=== PATIENT | male | born 1955 | race Caucasian/White ===

== ENCOUNTER → 2017-10-13 10:12 | Outpatient (CLI) | payer OTHER, SELFPAY ==
[2017-10-13 11:52] LABS: Alanine Aminotransferase 38 U/L (12-78); Albumin Level 3.8 gm/dL (3.4-5.0); Alkaline Phosphatase 128 U/L (46-116); Aspartate Amino Transferase 25 U/L (15-37); Bilirubin,Direct 0.1 mg/dL (0.0-0.2); Bilirubin,Total 0.5 mg/dL (0.2-1.0); Chol/HDL Ratio 3.5 (1-3.5); Cholesterol 163 mg/dL (140-200); HDL Cholesterol 46 mg/dL (27-67); LDL Cholesterol 87 mg/dL (0-130); Total Protein,Serum 6.7 gm/dL (6.4-8.2); Triglycerides 150 mg/dL (30-200); VLDL Cholesterol 30 mg/dL (0-40)
== END ==
PROVIDERS: PCP Internal Medicine; Visit Provider Internal Medicine Cardiovascular Disease
DX: E78.5 Hyperlipidemia, unspecified (principal)
CPT/HCPCS: 36415; 80061; 80076

== ENCOUNTER → 2018-01-28 10:01 | Outpatient (CLI) | payer OTHER, SELFPAY ==
--- NOTE | 2018-01-28 10:08 | XR_ITS ---
XR knee RT 4V HISTORY: ITS.REASON: Right knee pain ORDERING PHYSICIAN: Vishal Mayo MD PATIENT AGE: 62 years COMPARISON: None FINDINGS: There are moderate to severe osteoarthritic changes of the lateral compartment a loose intra-articular body measuring 9 mm is noted along the medial and anterior aspect of the lateral compartment. Osteophytes are present along the lateral compartment. Mild osteoarthritic changes are present at the medial compartment and patellofemoral joint. There are postsurgical changes with a large staple along the medial femoral condyle, 2 trey along the proximal aspect of the tibia medially and 2 trey along the proximal aspect of the tibia laterally. No acute fracture or dislocation. No lytic or blastic change. IMPRESSION: Moderate to severe osteoarthritis with loose body along the lateral compartment medially with postsurgical changes
== END ==
PROVIDERS: PCP Internal Medicine; Visit Provider Orthopaedic Surgery
DX: M25.561 Pain in right knee (principal)
CPT/HCPCS: 73564

== ENCOUNTER → 2018-11-09 10:57 | Outpatient (CLI) | payer OTHER, SELFPAY ==
[2018-11-09 12:20] LABS: Alanine Aminotransferase 37 U/L (12-78); Albumin Level 3.6 gm/dL (3.4-5.0); Albumin/Globulin Ratio 1.2 (1.1-1.8); Alkaline Phosphatase 115 U/L (46-116); Anion Gap 11.3 mEq/L (5-15); Aspartate Amino Transferase 20 U/L (15-37); Bilirubin,Total 0.5 mg/dL (0.2-1.0); Blood Urea Nitrogen 18 mg/dL (7-18); Calcium 8.9 mg/dL (8.5-10.1); Carbon Dioxide 29 mmol/L (21.0-32.0); Chloride 106 mmol/L (98-107); Chol/HDL Ratio 4.3 (1-3.5); Cholesterol 173 mg/dL (140-200); Estimated Glomerular Filt Rate 61 ml/min (>60); GFR (African American) 74 ML/MIN (>60); Globulin 2.9 gm/dl (1.3-3.2); Glucose 96 mg/dL (74-106); HDL Cholesterol 40 mg/dL (27-67); LDL Cholesterol 104 mg/dL (0-130); Potassium 5.3 mmoL/L (3.5-5.1); Sodium 141 mmol/L (136-145); Total Protein,Serum 6.5 gm/dL (6.4-8.2); Triglycerides 145 mg/dL (30-200); VLDL Cholesterol 29 mg/dL (0-40)
== END ==
PROVIDERS: Visit Provider Internal Medicine Cardiovascular Disease
DX: E78.5 Hyperlipidemia, unspecified (principal)
CPT/HCPCS: 36415; 80053; 80061

== ENCOUNTER 2020-02-02 11:28 | Emergency (ER) | payer MEDICARE, SELFPAY ==
--- NOTE | 2020-02-02 11:36 | ECG_ITS ---
APPROVED REPORT Exam: Resting ECG HR:59 bpm ECG Measurements Heart Rate 59 AXES OH 192 P 25 QRSd 84 QRS 17 QT 398 T 37 QTc 394 <Conclusion> Sinus bradycardia,Incomplete RBBB Otherwise normal ECG Electronically signed by : Nick Gates, 02/02/2020 17:31:12
[2020-02-02 11:38] VITALS: BP 142/81; PULSE 69; RESP 18; TEMP 36.6; O2SAT 97; BMI 28.1
[2020-02-02 11:50] VITALS: BMI 28.1
--- NOTE | 2020-02-02 11:50 | HMH.EDGENADL ---
ED Disposition Clinical Impression: Lightheadedness, Leg weakness, bilateral Disposition: Home, Self-Care Condition on Discharge: Good Instructions: DI for Muscle Weakness, DI for Dizziness-Nonvertigo Additional Instructions: Amoxicillin as prescribed. Albuterol inhaler as needed. Follow-up with Dr. Gates in the office, call for appointment. Prescriptions: Albuterol Sulfate [Proventil-HFA 90mcg/puff Inh] 1 - 2 puffs IH Q6HP PRN #1 inh PRN Reason: Wheezing Transmission Status: Received by [facility] Amoxicillin [Amoxicillin 500mg Cap] 500 mg PO TID #30 cap Transmission Status: Received by [facility] Referrals: Nick Gates [Primary Care Provider] - - Critical Care Critical Care Time: No Attestation: On 02/02/20, the high probability of a clinically significant, sudden or life threatening deterioration of the following system(s) required my full and direct attention, intervention and personal management. The time I documented below is in addition to time spent performing reported procedures but includes the following listed in this critical care notation. Medical Decision Making - Medical Records Medical records reviewed: Yes: I reviewed the patient's medical records. - Tree Inquiry Pt receiving controlled substance: No Vital Signs: 02/02/20 11:38 02/02/20 13:31 Temperature 97.8 F 97.8 F Temperature Source Oral Oral Pulse Rate 70 Pulse Rate [Right Radial] 69 Respiratory Rate 18 18 Blood Pressure 134/88 Blood Pressure [Right Arm] 142/81 H Blood Pressure Mean [Right Arm] 101 Blood Pressure Source Automatic Cuff Blood Pressure Source [Right Arm] Automatic Cuff Blood Pressure Position Sitting Blood Pressure Position [Right Arm] Sitting 02 Sat by Pulse Oximetry 97 Oxygen Delivery Method Room Air Room Air - Lab Data Lab results reviewed: Yes: I reviewed the patient's lab results. Lab Results 02/02/20 11:45: WBC 4.3 L, RBC 4.70, Hgb 15.0, Hct 43.7, MCV 92.9, MCH 31.9 H, MCHC 34.4, RDW 12.9, Plt Count 217, MPV 7.6, Neut % (Auto) 57.2, Lymph % (Auto) 33.8, [place] % (Auto) 7.0, Eos % (Auto) 1.1, Baso % (Auto) 0.8, Neut # (Auto) 2.5, Lymph # (Auto) 1.5, [place] # (Auto) 0.3, Eos # (Auto) 0.1, Baso # (Auto) 0.0 02/02/20 11:45: Sodium 140, Potassium 4.7, Chloride 103, Carbon Dioxide 29, Anion Gap 12.7, BUN 21 H, Creatinine 1.10, Estimated Creat Clear 95, Estimated GFR 67, Est GFR ( Amer) 81, Glucose 101 H, Calcium 9.3, Troponin I < 0.01 Result diagrams: 02/02/20 11:45 02/02/20 11:45 - Radiology Data #1 Image(s): Chest Image Reviewed: Yes I reviewed the patient's radiology image, Yes I have reviewed radiologist's interpretation Hiatal hernia - ECG Data Tracing #1 EKG interpreted by Bill Shay MD: Rhythm: sinus bradycardia Rate: 59 [place]: normal Ectopy: none Conduction: normal ST Segment Changes: none T Wave Changes: none Q Waves: none No evidence of acute ischemia or injury Medical Decision Narrative: 12:45 PM: Nurse reports that patient now wants to know if he can refuse the coronavirus test. States that he thinks he just needs an inhaler. 12:54 PM: I spoke with patient and . He does not want a coronavirus test. He says Dr. Stinson is told him he needs to keep an inhaler and he is to does not currently have one. His again tells me that the last time he had this he was diagnosed with a sinus condition and was put on an antibiotic and she would like for him to be on the same now. He thinks it was amoxicillin. General Adult HPI - General Stated complaint: dizzy weak Time Seen by Provider: 02/02/20 12:04 - History of Present Illness HPI narrative: The patient says he woke up this morning feeling weak in the legs and lightheaded. He also says I also have sinus drainage, and that is not helping anything . He relates that he had similar symptoms a few years ago and was diagnosed with a bad sinus infection. He
--- NOTE | 2020-02-02 11:51 | XR_ITS ---
PROCEDURE: XR CHEST PORTABLE CLINICAL HISTORY: weakness COMPARISON: No exams were available for comparison FINDINGS: Prior CABG. Normal heart size. Lucency is noted in the retrocardiac region and could be related to a moderate-sized hiatal hernia and could be confirmed with CT. No lobar consolidation or collapse. No acute bony anomalies. No acute bony abnormalities. IMPRESSION: Lucency in the retrocardiac region which may be related to a hiatal hernia otherwise negative Dictated by: Abilio Kelly MD 02/02/2020 12:44 Electronically signed by Abilio Kelly MD in [place] 02/02/2020 12:44
[2020-02-02 11:58] LABS: Basophils % 0.8 % (0.1-2.0); Chloride 103 mmol/L (98-107); Eosinophils # 0.1 K/mm3 (0.0-0.4); Eosinophils % 1.1 % (0.1-12.0); Hematocrit 43.7 % (42.0-52.0); Lymphocytes # 1.5 K/mm3 (0.7-4.5); Lymphocytes % 33.8 % (10-50); Mean Corpuscular HGB Conc 34.4 g/dL (31.8-35.4); Mean Corpuscular Hemoglobin 31.9 pg (27.0-31.2); Mean Corpuscular Volume 92.9 fl (80-94); Mean Platelet Volume 7.6 fl (7.4-10.4); Monocytes # 0.3 K/mm3 (0.1-1.0); Neutrophils # 2.5 K/mm3 (1.8-7.8); Neutrophils % 57.2 % (37.0-80.0); Platelet Count 217 K/mm3 (142-424); Potassium 4.7 mmoL/L (3.5-5.1); Red Cell Distribution Width 12.9 % (11.5-17.5); Sodium 140 mmol/L (136-145); White Blood Count 4.3 K/mm3 (4.8-10.8)
[2020-02-02 12:01] LABS: Anion Gap 12.7 mEq/L (5-15); Blood Urea Nitrogen 21 mg/dl (9-20); Carbon Dioxide 29 mmol/L (22.0-30.0); Creatinine Clearance Estimated 95 mL/min (50-200); Estimated Glomerular Filt Rate 67 ml/min (>60); GFR (African American) 81 ML/MIN (>60)
[2020-02-02 12:02] LABS: Calcium 9.3 mg/dl (8.4-10.2); Glucose 101 mg/dl (74-100)
[2020-02-02 12:14] LABS: Troponin I < 0.01 ng/ml (0.00-0.034)
--- NOTE | 2020-02-02 12:32 | PC.NURSE ---
notified lab of covid swab order
--- NOTE | 2020-02-02 12:37 | XR_ITS ---
PROCEDURE: XR CHEST 2V CLINICAL HISTORY: weakness A COMPARISON: XR CHEST PORTABLE from 02/02/2020 FINDINGS: Prior median sternotomy. There is a moderate-sized hiatal hernia with lucency in the retrocardiac region. The lungs are clear without infiltrates, suspicious nodules, or pleural effusions. The thoracic kyphosis with mild wedging involving T7-T8 and T9 which may be chronic. IMPRESSION: Moderate-sized hiatal hernia. Thoracic kyphosis Dictated by: Abilio Kelly MD 02/02/2020 14:20 Electronically signed by Abilio Kelly MD in [place] 02/02/2020 14:20
--- NOTE | 2020-02-02 12:46 | PC.NURSE ---
Patient requesting to cancel Covid testing stating that he does not have symptoms and would rather just get an inhaler. notified. Ok to cancel Covid testing.
[2020-02-02 13:31] VITALS: BP 134/88; PULSE 70; RESP 18; TEMP 36.6; O2SAT 96
== END 2020-02-02 13:33 | disposition home or self-care (01) ==
PROVIDERS: Emergency Provider Emergency Medicine; PCP Internal Medicine
DX: R42 Dizziness and giddiness (principal); Z95.1 Presence of aortocoronary bypass graft; I25.10 Atherosclerotic heart disease of native coronary artery without angina pectoris; Z95.5 Presence of coronary angioplasty implant and graft; R29.898 Other symptoms and signs involving the musculoskeletal system
CPT/HCPCS: 71045; 71046; 80048; 84484; 85025; 93005; 99283

== ENCOUNTER → 2020-03-03 10:29 | Outpatient (CLI) | payer MEDICARE, SELFPAY ==
--- NOTE | 2020-03-03 10:35 | MR_ITS ---
PROCEDURE: MR HEAD/BRAIN WO/W CON CLINICAL INDICATION: DIZZINESS, NEAR SYNCOPE COMPARISON: No exams were available for comparison TECHNIQUE: Standard unenhanced MRI brain protocol FINDINGS: There are no restricted diffusion abnormalities. The vertebrobasilar vascular flow voids, 7th and 8th nerves, pituitary, orbits, and sinuses are unremarkable. Scattered foci of T2 prolongation within the subcortical, periventricular, and the pontine white matter is present. There are no abnormal areas of enhancement are hemorrhage. IMPRESSION: Pontine and supratentorial microischemia Dictated by: Isaias Damon 03/03/2020 13:00 Electronically signed by Isaias Damon in [place] 03/03/2020 13:00
== END ==
PROVIDERS: PCP Internal Medicine; Visit Provider Internal Medicine
DX: R42 Dizziness and giddiness (principal); R55 Syncope and collapse
CPT/HCPCS: 70553; A9576

== ENCOUNTER → 2020-03-14 10:44 | Outpatient (POV) | payer MEDICARE, SELFPAY | PROVIDERS: Visit Provider Otolaryngology | DX: Z00.00 Encounter for general adult medical examination without abnormal findings (principal) ==

== ENCOUNTER → 2020-03-17 10:43 | Outpatient (CLI) | payer MEDICARE, SELFPAY ==
--- NOTE | 2020-03-17 | CA_ITS ---
APPROVED REPORT Management Internship: KAYLA Laterality: Bilateral Indications: Dizziness Risk Factors Hypertension: Hyperlipidemia Doppler Spectral Velocity Analysis ECA (R) 110.80/20.20 cm/s ECA (L) 115.60/19.30 cm/s dICA (R) 92.50/28.90 cm/s dICA (L) 120.40/47.20 cm/s Samina (R) 100.20/28.90 cm/s Samina (L) 116.50/39.50 cm/s pICA (R) 90.50/25.00 cm/s pICA (L) 94.40/32.70 cm/s dCCA (R) 89.60/23.10 cm/s dCCA (L) 78.00/19.30 cm/s pCCA (R) 94.40/21.20 cm/s pCCA (L) 110.80/26.00 cm/s Vert (R) 67.40/23.10 cm/s Vert (L) 51.00/12.50 cm/s ICA/CCA 1.12 ICA/CCA 1.54 Findings Duplex evaluation demonstrates stenosis of the right proximal internal carotid artery <20% with PSV <140 cm/sec, EDV <100 cm/sec, and IC/CC Ratio <4.0.Duplex evaluation demonstrates stenosis of the left proximal internal carotid artery <20% with PSV <140 cm/sec, EDV <100 cm/sec, and IC/CC Ratio <4.0. Conclusion No increased velocities to suggest hemodynamically significant stenosis in either internal carotid artery. Electronically signed by : Abilio Kelly MD 03/17/2020 17:42:09
== END ==
PROVIDERS: PCP Internal Medicine; Visit Provider Otolaryngology
DX: R42 Dizziness and giddiness (principal)
CPT/HCPCS: 93880

== ENCOUNTER 2020-09-10 08:09 | Day surgery (SDC) | payer MEDICARE, SELFPAY ==
[2020-09-10] VITALS (11 sets, daily range): BP systolic 98–179; BP diastolic 50–110; PULSE 69–93; RESP 16–20; TEMP 36.6–36.7; O2SAT 94–98; BMI 26.7
--- NOTE | 2020-09-10 08:22 | HMH.EDGENADL ---
ED Disposition Clinical Impression: Food impaction of esophagus Qualifiers: Encounter type: initial encounter Qualified Code(s): T18.128A - Food in esophagus causing other injury, initial encounter Disposition: Admitted as Observation Condition on Discharge: Good Referrals: Nick Gates [Primary Care Provider] - - Critical Care Critical Care Time: No Attestation: On 09/10/20, the high probability of a clinically significant, sudden or life threatening deterioration of the following system(s) required my full and direct attention, intervention and personal management. The time I documented below is in addition to time spent performing reported procedures but includes the following listed in this critical care notation. Medical Decision Making - Medical Records Medical records reviewed: Yes: I reviewed the patient's medical records. - Tree Inquiry Pt receiving controlled substance: No Vital Signs: 09/10/20 08:09 Temperature 98.0 F Temperature Source Oral Pulse Rate [Right] 82 Respiratory Rate 16 Blood Pressure [Right Arm] 155/110 H Blood Pressure Mean [Right Arm] 125 Blood Pressure Source [Right Arm] Automatic Cuff Blood Pressure Position [Right Arm] Sitting 02 Sat by Pulse Oximetry 98 Oxygen Delivery Method Room Air - Lab Data Lab Results 09/10/20 08:33: WBC 4.1 L, RBC 4.86, Hgb 15.9, Hct 44.3, MCV 91.1, MCH 32.7 H, MCHC 35.9 H, RDW 13.6, Plt Count 213, MPV 7.4, Neut % (Auto) 56.1, Lymph % (Auto) 33.3, [place] % (Auto) 8.7, Eos % (Auto) 1.1, Baso % (Auto) 0.8, Neut # (Auto) 2.3, Lymph # (Auto) 1.4, [place] # (Auto) 0.4, Eos # (Auto) 0.0, Baso # (Auto) 0.0 09/10/20 08:33: PT 11.4, INR 1.03, APTT 23.6 09/10/20 08:33: Sodium 137, Potassium 4.4, Chloride 101, Carbon Dioxide 29, Anion Gap 11.4, BUN 20, Creatinine 1.20, Estimated Creat Clear 85, Estimated GFR 61, Est GFR ( Amer) 73, Glucose 106 H, Calcium 9.5 Result diagrams: 09/10/20 08:33 09/10/20 08:33 Orders (Tests/Meds): ED MEDICATIONS Discontinued Medications Generic Name Dose Route Start Last Admin Trade Name Raymond PRN Reason Stop Dose Admin Glucagon 1 mg 09/10/20 08:21 09/10/20 08:41 Glucagon 1 Mg/Ml Vial IV 09/10/20 08:22 1 mg ONCE ONE Administration Ondansetron HCl 4 mg 09/10/20 08:21 09/10/20 08:40 Ondansetron 4mg/2ml Vial IV 09/10/20 08:22 4 mg ONCE ONE Administration Medical Decision Narrative: 64-year-old male with esophageal strictures and history of multiple impacted food boluses with an impacted food bolus today. Tolerating secretions but not oral intake. Refractory to glucagon and Zofran. Have spoken to surgery who will perform emergent EGD. Patient remained stable in the ED. General Adult HPI - General Stated complaint: can't swallow Time Seen by Provider: 09/10/20 08:22 - History of Present Illness HPI narrative: Is a 64-year-old male with a history of esophageal stricture status post multiple presenting with an impacted food bolus that he describes to be pulled pork that he ate yesterday at noon. He is unable to swallow liquids now. He is able to tolerate his own secretions. No fever, chills, cough, shortness of breath, difficulty breathing, chest pain. This has happened multiple times in the past and feels exactly the same as prior impacted food boluses. - Related Data Home Medications Medication Instructions Recorded Confirmed aspirin 325 mg tablet 325 mg PO BID 01/28/18 02/02/20 cetirizine 10 mg capsule 10 mg PO ONCE 01/28/18 02/02/20 lansoprazole 30 mg capsule,delayed 30 mg PO QHS 01/28/18 02/02/20 release propranolol 160 mg capsule,24 160 mg PO ONCE 01/28/18 02/02/20 hr,extended release ramipril 5 mg capsule 5 mg PO BID 01/28/18 02/02/20 Alirocumab [Praluent Pen] 75 mg SQ DIRECTED 02/02/20 02/02/20 Previous Rx's Medication Instructions Recorded Albuterol Sulfate [Proventil-HFA 1 - 2 puffs IH Q6HP PRN #1 inh 02/02/20 90mcg/puff Inh] Amoxicillin
[2020-09-10 08:42] LABS: Basophils % 0.8 % (0.1-2.0); Eosinophils % 1.1 % (0.1-12.0); Hematocrit 44.3 % (42.0-52.0); Hemoglobin 15.9 g/dL (14.1-18.0); Lymphocytes # 1.4 K/mm3 (0.7-4.5); Lymphocytes % 33.3 % (10-50); Mean Corpuscular HGB Conc 35.9 g/dL (31.8-35.4); Mean Corpuscular Hemoglobin 32.7 pg (27.0-31.2); Mean Corpuscular Volume 91.1 fl (80-94); Mean Platelet Volume 7.4 fl (7.4-10.4); Monocytes # 0.4 K/mm3 (0.1-1.0); Monocytes % 8.7 % (1.7-9.3); Neutrophils # 2.3 K/mm3 (1.8-7.8); Neutrophils % 56.1 % (37.0-80.0); Platelet Count 213 K/mm3 (142-424); Red Blood Count 4.86 M/mm3 (4.60-6.20); Red Cell Distribution Width 13.6 % (11.5-17.5); White Blood Count 4.1 K/mm3 (4.8-10.8)
--- NOTE | 2020-09-10 08:45 | PC.NURSE ---
pt unable to swallow water at this time
[2020-09-10 08:48] LABS: Anion Gap 11.4 mEq/L (5-15); Blood Urea Nitrogen 20 mg/dl (9-20); Calcium 9.5 mg/dl (8.4-10.2); Carbon Dioxide 29 mmol/L (22.0-30.0); Chloride 101 mmol/L (98-107); Creatinine Clearance Estimated 85 mL/min (50-200); Estimated Glomerular Filt Rate 61 ml/min (>60); GFR (African American) 73 ML/MIN (>60); Glucose 106 mg/dl (74-100); Potassium 4.4 mmoL/L (3.5-5.1); Sodium 137 mmol/L (136-145)
[2020-09-10 08:53] LABS: Activated Partial Thrombo Time 23.6 seconds (23.6-34.0); INR 1.03 (0.9-1.1); Prothrombin Time 11.4 seconds (9.4-11.8)
--- NOTE | 2020-09-10 09:04 | PC.NURSE ---
speaking Dr. Mcknight
--- NOTE | 2020-09-10 09:09 | PC.NURSE ---
Notified House pt would be having EGD
--- NOTE | 2020-09-10 09:20 | PC.NURSE ---
Dr Mcknight at Bedside
--- NOTE | 2020-09-10 10:28 | PC.NURSE ---
pt resting with at bedside. No distress or needs at this time
[2020-09-10 10:43] LABS: Coronavirus 19 IgG Antibody Negative (Negative); Coronavirus 19 IgM Antibody Negative (Negative)
--- NOTE | 2020-09-10 12:16 | PC.NURSE ---
Pt resting. no needs at this time
--- NOTE | 2020-09-10 13:06 | PC.NURSE ---
Pt up to restroom. No ocmplaints
--- NOTE | 2020-09-10 13:31 | PC.NURSE ---
Anesthesia at bedside
--- NOTE | 2020-09-10 13:54 | PC.NURSE ---
Pt up to procedure room with LUCY Gonzalez Confirmed med rec at this time. Completed pre-op checklist at this time.
--- NOTE | 2020-09-10 14:15 | HMH.SCOPE ---
- Procedure: Date: 09/10/20 Patient Date of :: 1955 Procedure Performed:: Esophagogastroscopy with removal of distal esophageal foreign body Indications:: Esophageal foreign body Esophageal stricture with history of dilatation Performing Provider:: Darrion Mcknight MD Referring Provider:: Emergency department Sedation:: Monitored anesthesia care Procedure:: After informed consent was obtained the patient was taken to the endoscopy suite. Sedation ensued after the patient was transferred to the left lateral decubitus position. Pulse, blood pressure, and oxygen saturation were monitored throughout the procedure. Retroflexion within the gastric lumen was accomplished. The gastroscope was carefully removed and the patient was transferred to recovery in stable condition. Please see findings and specimens below for detail. Findings:: Impacted foreign body consistent with history of ingested food particles (pulled pork) at gastroesophageal junction partially retrieved in a retrograde fashion and partially advanced into gastric lumen Complex hiatal hernia with apparent paraesophageal component and large portion of gastric body emanating through herniation Specimens:: None Recommendations:: Increase proton pump inhibition Full liquid diet for 48 hours followed by soft diet Follow-up in 1 week Barium swallow/UGI/SBFT in near future for improved evaluation of hiatal hernia Complications:: No immediate Estimated blood obtained (mL): 0
== END 2020-09-10 14:30 | disposition home or self-care (01) ==
LOC: ER 09:09 → SDC 14:06
PROVIDERS: Emergency Provider Physician Assistant; PCP Internal Medicine; Visit Provider Surgery
PROC: 0DJ08ZZ Inspection of Upper Intestinal Tract, Via Natural or Artificial Opening Endoscopic (ICD-10-PCS; CPT 43235; principal; 2020-09-10 13:30)
DX: T18.128A Food in esophagus causing other injury, initial encounter (principal); K44.0 Diaphragmatic hernia with obstruction, without gangrene; I48.91 Unspecified atrial fibrillation; I10 Essential (primary) hypertension; Z95.1 Presence of aortocoronary bypass graft; Z79.82 Long term (current) use of aspirin; Z79.899 Other long term (current) drug therapy
CPT/HCPCS: 43247; 80048; 85025; 85610; 85730; 86328; 96365; 96375; 99284; J1610; J2405

== ENCOUNTER → 2021-02-07 11:21 | Outpatient (CLI) | payer MEDICARE, SELFPAY | PROVIDERS: Visit Provider Surgery | DX: Z20.822 Contact with and (suspected) exposure to COVID-19 (principal) | CPT/HCPCS: U0003 ==

== ENCOUNTER → 2021-02-10 15:15 | Outpatient (CLI) | payer MEDICARE, SELFPAY | PROVIDERS: PCP Internal Medicine; Visit Provider Surgery | DX: Z11.52 Encounter for screening for COVID-19 (principal) | CPT/HCPCS: U0003 ==

== ENCOUNTER → 2021-02-17 11:56 | Outpatient (CLI) | payer MEDICARE, SELFPAY ==
[2021-02-17 13:43] LABS: Alanine Aminotransferase 22 U/L (12-78); Albumin Level 3.9 g/dl (3.5-5.0); Albumin/Globulin Ratio 1.6 (1.1-1.8); Alkaline Phosphatase 107 U/L (38-126); Anion Gap 10.5 mEq/L (5-15); Aspartate Amino Transferase 29 U/L (17-59); Bilirubin,Total 0.7 mg/dl (0.2-1.3); Blood Urea Nitrogen 21 mg/dl (9-20); Calcium 8.9 mg/dl (8.4-10.2); Carbon Dioxide 24 mmol/L (22.0-30.0); Chloride 107 mmol/L (98-107); Cholesterol 133 mg/dl (140-200); Estimated Glomerular Filt Rate 84 ml/min (>60); GFR (African American) 102 ML/MIN (>60); Globulin 2.4 g/dL (1.3-3.2); Glucose 88 mg/dl (74-100); HDL Cholesterol 45 mg/dl (40-60); Potassium 4.5 mmoL/L (3.5-5.1); Sodium 137 mmol/L (136-145); Total Protein,Serum 6.3 g/dl (6.3-8.2); Triglycerides 113 mg/dl (30-150); VLDL Cholesterol 23 mg/dL (0-40)
[2021-02-17 13:53] LABS: Direct LDL Cholesterol 67.14 mg/dL (100-129)
== END ==
DX: E78.5 Hyperlipidemia, unspecified (principal)
CPT/HCPCS: 80053; 80061

== ENCOUNTER 2021-04-16 10:25 | Emergency (ER) | payer MEDICARE, SELFPAY ==
[2021-04-16 12:27] VITALS: PULSE 60; RESP 18; TEMP 36.8; O2SAT 97; BMI 27.5
--- NOTE | 2021-04-16 12:32 | HMH.EDUTC ---
[facility] [place] Impression: Viral syndrome, Exposure to COVID-19 virus Disposition: Home, Self-Care Condition on Discharge: Good Instructions: DI for Viral Syndrome, DI for COVID-19 (Suspected or Confirmed ), Preventing the Spread of Coronavirus Discharge Instructions Additional Instructions: Drink plenty of fluids. Take tylenol for pain or fever. Return if you begin to have difficulty breathing. Follow up with your regular doctor. GO TO THE ER FOR ANY WORSENING SYMPTOMS Referrals: Nick Gates [Primary Care Provider] - Time of Disposition: 12:49 Medical Decision Making - Medical Records Medical records reviewed: No: I reviewed the patient's medical records. - Tree Inquiry Pt receiving controlled substance: No Vital Signs: 04/16/21 12:27 04/16/21 13:07 Temperature 98.2 F 98 F Temperature Source Oral Pulse Rate 63 Pulse Rate [Left] 60 Respiratory Rate 18 16 Blood Pressure 139/84 02 Sat by Pulse Oximetry 97 [facility] [place] Stated complaint: covid symtoms Time Seen by Provider: 04/16/21 12:33 Mode of Arrival: Ambulatory Source of Information: Patient Limitations: No Limitations Description of Symptoms (Recalled from Triage Doc. by RN): pt states he noticed this am that he has lost his sense of taste and smell. HEENT Symptoms (Recalled from RN notes): Yes (loss of taste/smell) Resp Symptoms (Recalled from RN notes): No Skin Symptoms (Recalled from RN notes): No MS Symptoms (Recalled from RN notes): No Functional Status (Recalled from RN notes): na - History of Present Illness Provider Complaint: He states that he has felt bad for the past 3 days. He describes his symptoms as just feeling bad , He does have a runny nose. He has not had a sense of smell since early this morning. He denies any chest pain, shortness of breath or other symptoms. - Related Data Home Medications Medication Instructions Recorded Confirmed aspirin 325 mg tablet 325 mg PO BID 01/28/18 09/10/20 cetirizine 10 mg capsule 10 mg PO ONCE 01/28/18 09/10/20 lansoprazole 30 mg capsule,delayed 30 mg PO QHS 01/28/18 09/10/20 release propranolol 160 mg capsule,24 160 mg PO ONCE 05/23/18 01/03/21 hr,extended release ramipril 5 mg capsule 5 mg PO BID 01/28/18 09/10/20 Alirocumab [Praluent Pen] 75 mg SQ DIRECTED 02/02/20 09/10/20 Previous Rx's Medication Instructions Recorded Albuterol Sulfate [Proventil-HFA 1 - 2 puffs IH Q6HP PRN #1 inh 02/02/20 90mcg/puff Inh] Allergies Allergy/AdvReac Type Severity Reaction Status Date / Time No Known Allergies Allergy Verified 06/27/18 16:46 - Worker's Comp Is this a Worker's Comp case?: No [facility] History - Hepatitis A Screen Drug use history?: No High risk sexual behaviors?: No History of sexually transmitted infection?: No Currently employed?: No Childcare worker?: No Do you have indoor plumbing?: Yes Do you have electricity?: Yes Attestation statement:: This patient has been screened for Hepatitis A risk factors. I have reviewed the patient's past medical history: Yes Medical History: Reports:: Atrial Fibrillation, Hypertension Denies:: Diabetes Mellitus Type 1, Diabetes Mellitus Type 2 Laterality Cases: Left: Other, Right: Arthroscopy Hip Other Surgeries: Yes: Other (Heart bypass.) Amputation: No Fractures: No - Social History Smoking Status: Former smoker Alcohol Intake: never Occupational Status: employed Family Hx:: Coronary Artery Disease ROS Obtained: Yes All systems reviewed & no additional complaints - Constitutional Constitutional: Reports system reviewed and no additional complaints, except as docu - Eyes Eyes: Reports system reviewed and no additional complaints, except as docu - ENT Ears, Nose, Mouth, and Throat: Reports system reviewed and no additional complaints, except as docu - Cardiovascular Cardiovascular: Reports system reviewed and no additional complaints, except as docu -
[2021-04-16 13:07] VITALS: BP 139/84; PULSE 63; RESP 16; TEMP 36.6
== END 2021-04-16 13:25 | disposition home or self-care (01) ==
PROVIDERS: Emergency Provider Nurse Practitioner Family; PCP Internal Medicine
DX: B34.9 Viral infection, unspecified (principal); Z20.822 Contact with and (suspected) exposure to COVID-19; I10 Essential (primary) hypertension; I48.0 Paroxysmal atrial fibrillation; Z87.891 Personal history of nicotine dependence
CPT/HCPCS: G0463; 99202; U0003

== ENCOUNTER → 2021-07-06 15:51 | Outpatient (CLI) | payer MEDICARE, SELFPAY ==
[2021-07-06 16:31] LABS: Coronavirus 19, PCR Not Detected (NotDetected); Influenza A, PCR Not Detected (NotDetected); Influenza B, PCR Not Detected (NotDetected)
== END ==
PROVIDERS: PCP Internal Medicine; Visit Provider Internal Medicine
DX: Z20.822 Contact with and (suspected) exposure to COVID-19 (principal)
CPT/HCPCS: C9803; U0003; U0005

== ENCOUNTER 2022-03-02 18:27 | Emergency (ER) | payer MEDICARE, SELFPAY ==
[2022-03-02 18:40] VITALS: BP 115/70; PULSE 78; RESP 19; TEMP 36.9; O2SAT 98; BMI 31.0
--- NOTE | 2022-03-02 19:10 | HMH.EDUTC ---
[facility] [place] Disposition Clinical Impression: Upper respiratory infection Qualifiers: URI type: unspecified viral URI Qualified Code(s): J06.9 - Acute upper respiratory infection, unspecified Disposition: Home, Self-Care Condition on Discharge: Good Instructions: DI for COVID-19 (Suspected or Confirmed ) Additional Instructions: covid swab was sent to lab, call tomorrow for results. self isolate until test results are known to be negative No sign of a bacterial infection. Likely viral. Viruses can take 7-14 days to run their course. Nasal saline and bulb syringe or nose Kimi to remove nasal drainage to help with nasal congestion. Hard to eat, drink, sleep with nasal congestion so important to keep this cleaned out. Monitor temp. Tylenol or Motrin as needed for pain or fever Encourage fluids, water, Gatorade, Powerade, Pedialyte if infant/toddler/child Warm salt water gargles Warm fluids Sore throat lozenges Sleep elevated Humidifier/vaporizer Follow-up immediately for new or worsening symptoms or no noticeable improvement over the next 48-72 hours. continue antibiotics Referrals: Nick Brown MD [Primary Care Provider] - Time of Disposition: 19:18 Medical Decision Making - Tree Inquiry Pt receiving controlled substance: No Vital Signs: 03/02/22 18:40 Temperature 98.5 F Temperature Source Oral Pulse Rate [Right Brachial] 78 Respiratory Rate 19 Blood Pressure [Right Arm] 115/70 Blood Pressure Mean [Right Arm] 85 Blood Pressure Source [Right Arm] Automatic Cuff Blood Pressure Position [Right Arm] Sitting 02 Sat by Pulse Oximetry 98 Oxygen Delivery Method Room Air Orders (Tests/Meds): ORDERS Category Date Time Status Covid-19 Nasal PCR ([facility]) Routine Lab 03/02/22 18:48 Received [facility] [place] HPI - General Chief complaint: Urgent Treatment Center Stated complaint: covid test Time Seen by Provider: 03/02/22 19:10 Mode of Arrival: Ambulatory Source of Information: Patient Limitations: No Limitations Description of Symptoms (Recalled from Triage Doc. by RN): PATIENT C/O WET COUGH AND HEADACHE. STATES HE TESTED POSITIVE WITH AN AT HOME COVID TEST HEENT Symptoms (Recalled from RN notes): Yes Resp Symptoms (Recalled from RN notes): Yes Skin Symptoms (Recalled from RN notes): No MS Symptoms (Recalled from RN notes): No Functional Status (Recalled from RN notes): WNL - History of Present Illness Provider Complaint: 66 yr old male presents for cough and sore throat since . pt states he seen dr brown yesterday and placed on antibiotics. today pt states he whole family took a covid test and 3 were positive- he was one of the positives - Related Data Home Medications Medication Instructions Recorded Confirmed aspirin 325 mg tablet 325 mg PO BID 01/28/18 09/10/20 cetirizine 10 mg capsule 10 mg PO ONCE 01/28/18 09/10/20 lansoprazole 30 mg capsule,delayed 30 mg PO QHS 01/28/18 09/10/20 release propranolol 160 mg capsule,24 160 mg PO ONCE 01/28/18 09/10/20 hr,extended release ramipril 5 mg capsule 5 mg PO BID 01/28/18 09/10/20 Alirocumab [Praluent Pen] 75 mg SQ DIRECTED 02/02/20 09/10/20 Previous Rx's Medication Instructions Recorded Albuterol Sulfate [Proventil-HFA 1 - 2 puffs IH Q6HP PRN #1 inh 02/02/20 90mcg/puff Inh] Allergies Allergy/AdvReac Type Severity Reaction Status Date / Time No Known Allergies Allergy Verified 06/27/18 16:46 - Worker's Comp Is this a Worker's Comp case?: No [facility] History - Hepatitis A Screen Attestation statement:: This patient has been screened for Hepatitis A risk factors. I have reviewed the patient's past medical history: Yes Medical History: Reports:: Atrial Fibrillation, Hypertension Denies:: Diabetes Mellitus Type 1, Diabetes Mellitus Type 2 Laterality Cases: Left: Other, Right: Arthroscopy Hip Other Surgeries: Yes: Other (Heart bypass.) Amputation: No Fractures: No - Social History Smoking Status: Former smoker Alcohol
[2022-03-02 19:24] VITALS: BP 115/70; PULSE 78; RESP 19; TEMP 36.9; O2SAT 98
== END 2022-03-02 19:33 | disposition home or self-care (01) ==
PROVIDERS: Emergency Provider Nurse Practitioner Family; PCP Internal Medicine
DX: U07.1 COVID-19 (principal)
CPT/HCPCS: 99212; C9803; G0463; U0003; U0005

== ENCOUNTER → 2022-09-12 12:12 | Outpatient (CLI) | payer MEDICARE, SELFPAY ==
[2022-09-12 13:21] LABS: Chloride 105 mmol/L (98-107)
[2022-09-12 13:22] LABS: Potassium 4.8 mmoL/L (3.5-5.1); Sodium 139 mmol/L (136-145)
[2022-09-12 13:24] LABS: Blood Urea Nitrogen 22 mg/dl (9-20); Estimated Glomerular Filt Rate 67 ml/min (>60); GFR (African American) 81 ML/MIN (>60)
[2022-09-12 13:25] LABS: Alanine Aminotransferase 25 U/L (12-78); Albumin Level 3.8 g/dl (3.5-5.0); Albumin/Globulin Ratio 1.5 (1.1-1.8); Alkaline Phosphatase 124 U/L (38-126); Anion Gap 8.8 mEq/L (5-15); Aspartate Amino Transferase 30 U/L (17-59); Bilirubin,Total 0.5 mg/dl (0.2-1.3); Calcium 8.7 mg/dl (8.4-10.2); Carbon Dioxide 30 mmol/L (22.0-30.0); Chol/HDL Ratio 2.8 (1-3.5); Cholesterol 128 mg/dl (140-200); Globulin 2.5 g/dL (1.3-3.2); Glucose 97 mg/dl (74-100); HDL Cholesterol 45 mg/dl (40-60); Total Protein,Serum 6.3 g/dl (6.3-8.2); Triglycerides 130 mg/dl (30-150); VLDL Cholesterol 26 mg/dL (0-40)
[2022-09-12 13:51] LABS: Direct LDL Cholesterol 53.59 mg/dL (100-129)
== END ==
PROVIDERS: PCP Internal Medicine; Visit Provider Internal Medicine Cardiovascular Disease
DX: E78.5 Hyperlipidemia, unspecified (principal)
CPT/HCPCS: 36415; 80053; 80061

== ENCOUNTER → 2022-12-20 12:38 | Outpatient (CLI) | payer MEDICARE, SELFPAY ==
[2022-12-20 14:37] LABS: Basophils % 0.4 % (0.1-2.0); Eosinophils # 0.1 K/mm3 (0.0-0.4); Eosinophils % 1.6 % (0.1-12.0); Hematocrit 41.6 % (42.0-52.0); Hemoglobin 13.4 g/dL (14.1-18.0); Lymphocytes # 1.5 K/mm3 (0.7-4.5); Lymphocytes % 33.6 % (10-50); Mean Corpuscular HGB Conc 32.2 g/dL (31.8-35.4); Mean Corpuscular Hemoglobin 30.8 pg (27.0-31.2); Mean Corpuscular Volume 95.7 fl (80-94); Monocytes # 0.4 K/mm3 (0.1-1.0); Monocytes % 7.7 % (1.7-9.3); Neutrophils # 2.6 K/mm3 (1.8-7.8); Neutrophils % 56.7 % (37.0-80.0); Platelet Count 253 K/mm3 (142-424); Red Blood Count 4.35 M/mm3 (4.60-6.20); Red Cell Distribution Width 13.2 % (11.5-17.5); White Blood Count 4.5 K/mm3 (4.8-10.8)
[2022-12-20 14:55] LABS: Alanine Aminotransferase 25 U/L (12-78); Albumin Level 3.7 g/dl (3.5-5.0); Albumin/Globulin Ratio 1.5 (1.1-1.8); Alkaline Phosphatase 134 U/L (38-126); Anion Gap 9.1 mEq/L (5-15); Aspartate Amino Transferase 31 U/L (17-59); Bilirubin,Total 0.5 mg/dl (0.2-1.3); Blood Urea Nitrogen 18 mg/dl (9-20); Calcium 8.2 mg/dl (8.4-10.2); Carbon Dioxide 26 mmol/L (22.0-30.0); Chloride 106 mmol/L (98-107); Chol/HDL Ratio 3.3 (1-3.5); Cholesterol 121 mg/dl (140-200); Estimated Glomerular Filt Rate 84 ml/min (>60); GFR (African American) 102 ML/MIN (>60); Globulin 2.4 g/dL (1.3-3.2); Glucose 82 mg/dl (74-100); HDL Cholesterol 37 mg/dl (40-60); Potassium 4.1 mmoL/L (3.5-5.1); Sodium 137 mmol/L (136-145); Total Protein,Serum 6.1 g/dl (6.3-8.2); Triglycerides 178 mg/dl (30-150); VLDL Cholesterol 36 mg/dL (0-40)
[2022-12-20 15:04] LABS: NT Pro Brain Natriuretic Pep. 197 pg/mL (0-125)
[2022-12-20 15:07] LABS: Direct LDL Cholesterol 62.88 mg/dL (100-129)
[2022-12-20 15:25] LABS: Prostate Specific Ag Screen 1.3 ng/ml (0.0-4.0)
== END ==
PROVIDERS: PCP Internal Medicine; Visit Provider Internal Medicine
DX: I10 Essential (primary) hypertension (principal); E78.5 Hyperlipidemia, unspecified; R60.9 Edema, unspecified; Z12.5 Encounter for screening for malignant neoplasm of prostate; R06.02 Shortness of breath
CPT/HCPCS: 80053; 80061; 83880; 85025; G0103

== ENCOUNTER → 2023-01-03 12:57 | Outpatient (CLI) | payer MEDICARE, SELFPAY | PROVIDERS: PCP Internal Medicine; Visit Provider Internal Medicine | DX: R60.0 Localized edema (principal) | CPT/HCPCS: 93306 ==

== ENCOUNTER 2024-05-19 17:54 | Emergency (ER) | payer MEDICARE, SELFPAY ==
[2024-05-19 18:14] VITALS: BP 143/80; PULSE 75; RESP 20; TEMP 37.3; O2SAT 99; BMI 29.9
--- NOTE | 2024-05-19 18:39 | ED_ITS ---
Discharge Plan Disposition Patient Disposition: Home, Self-Care Condition: Good Prescriptions Prescriptions: New amoxicillin 875 mg tablet 875 mg PO Q12H Qty: 20 0RF benzonatate 100 mg capsule 100 mg PO TIDP PRN (Reason: Cough) Qty: 30 0RF methylprednisolone 4 mg Tablets,Dose Pack 4 mg PO DIRECTED 6 Days Qty: 21 0RF Rx Instructions: Take 1 pack as directed for 6 days No Action ramipril 5 mg capsule 5 mg PO BID propranolol 160 mg capsule,extended release 24 hr 160 mg PO ONCE aspirin 325 mg tablet 325 mg PO BID albuterol sulfate 200 PUFFS HFA aerosol inhaler 1 - 2 puffs IH Q6HP PRN (Reason: Wheezing) Qty: 1 0RF bumetanide 0.5 mg tablet 0.5 mg PO DAILY propranolol [Inderal] 1 mg/mL Solution 1 mg PO DAILY Praluent Pen 75 mg/mL pen injector 75 mg SQ MONTHLY PRN (Reason: cholesterol) Referrals Follow up/Referrals: Nick Gates MD [Primary Care Provider] - See instructions Activity Restrictions/Add. Instructions Additional Instructions/Restrictions: Drink plenty of fluids. Take tylenol or ibuprofen for pain or fever. Take the medications as directed. Follow up with your regular doctor. GO TO THE ER FOR ANY WORSENING SYMPTOMS Clinical Impressions Clinical Impression: Sinusitis, Acute viral syndrome Instructions Patient Instructions: Sinusitis, DI for Sinusitis Print Language Print Language: Tongan Discharge ED Provider: Vishal Ty [facility] [place] General Stated complaint: covid test Mode of Arrival: Ambulatory Source of Information: Patient Time Seen by Provider: 05/19/24 18:38 Description of Symptoms (Recalled from Triage Doc. by RN): wants covid test c/o runny nose, headache, sneezing, upset stomach HEENT Symptoms (Recalled from RN notes): Yes (runny nose) Resp Symptoms (Recalled from RN notes): Yes Skin Symptoms (Recalled from RN notes): No MS Symptoms (Recalled from RN notes): No Functional Status (Recalled from RN notes): wnl Related Data Home Medications ?Medication ?Instructions ?Recorded ?Confirmed aspirin 325 mg tablet 325 mg PO BID heart 01/28/18 05/19/24 propranolol 160 mg capsule,24 160 mg PO ONCE Hypertension 01/28/18 05/19/24 hr,extended release ramipril 5 mg capsule 5 mg PO BID Hypertension 01/28/18 05/19/24 alirocumab 75 mg/mL subcutaneous 75 mg SQ MONTHLY PRN cholesterol 05/19/24 05/19/24 pen injector (Praluent Pen) bumetanide 0.5 mg tablet 0.5 mg PO DAILY 05/19/24 05/19/24 propranolol 1 mg/mL intravenous 1 mg PO DAILY 05/19/24 05/19/24 solution Previous Rx's ?Medication ?Instructions ?Recorded albuterol sulfate 90 mcg/actuation 1 - 2 puffs IH Q6HP PRN Wheezing 02/02/20 aerosol inhaler #1 inh amoxicillin 875 mg tablet 875 mg PO Q12H #20 tabs 05/19/24 benzonatate 100 mg capsule 100 mg PO TIDP PRN Cough #30 caps 05/19/24 methylprednisolone 4 mg tablets in 4 mg PO DIRECTED 6 days #21 tabs 05/19/24 a dose pack Allergies Allergy/AdvReac Type Severity Reaction Status Date / Time No Known Allergies Allergy Verified 06/27/18 16:46 Worker's Comp Is this a Worker's Comp case?: No [facility] Disclaimer: The information contained in this section may have been updated after the patient was seen, as this information can be updated by other users. Medical History (Updated 05/19/24 @ 19:23 by Vishal Ty APRN) Cancer Migraine Heart attack Hyperlipidemia Hypertension Surgical History (Updated 05/19/24 @ 18:19 by Leslie Miller RN) Hx of cholecystectomy History of open heart surgery Hx of right heart catheterization Social History Smoking Status: Former smoker alcohol intake: never current occupational status: employed Travel in the last 8 weeks: None ROS Obtained: Yes All systems reviewed & no additional complaints except as documented Constitutional Constitutional: Reports poor appetite Eyes Eyes: Reports system reviewed and no additional complaints, except as documented ENT Ears, Nose, Mouth, and Throat: Reports as per HPI Cardiovascular Cardiovascular: Reports system reviewed and no additional complaints, except as documented and Denies chest pain Respiratory Respiratory: Denies shortness of breath, Denies chest congestion, Reports cough, Denies stridor and Denies wheezing Gastrointestinal Gastrointestingal: Reports system reviewed and no additional complaints, except as documented; Denies abdominal pain, diarrhea or vomiting Musculoskeletal Musculoskeletal: Reports system reviewed and no additional complaints, except as documented and Denies arthralgias Integumentary/Breasts Skin/Breast: Reports system reviewed and no additional complaints, except as documented and Denies rash Neurologic Neurologic: Denies paresthesias Allergic/Immunologic Allergic/Immunologic: Denies wheezing Physical Exam General General appearance: alert and in no apparent distress Eye Eye exam: Present normal appearance, PERRL and EOMI ENT ENT exam: Present mucous membranes moist and normal external ear exam Expanded ENT Exam External ear exam: Present normal external inspection TM/Canal exam: Bilateral TM: erythema and bulging Nose exam: Absent sinus tenderness Nasal speculum exam: Bilateral: normal Mouth exam: Present normal external inspection; Absent drooling Teeth exam: Present normal inspection Throat exam: Present tonsillar erythema and tonsillomegaly Neck Neck exam: Present normal inspection, full ROM and trachea midline; Absent tenderness, lymphadenopathy or thyromegaly Chest Chest inspection: Present normal inspection and symmetric chest wall rise; Absent tenderness or rash Respiratory Respiratory exam: Present normal lung sounds bilaterally; Absent respiratory distress, wheezes, stridor or accessory muscle use Cardiovascular Cardiovascular exam: Present regular rate, normal rhythm and normal heart sounds Abdominal Exam Abdominal exam: Present soft; Absent distention, tenderness, guarding, rebound or rigidity Extremities Exam Extremities exam: Present normal inspection, full ROM and normal capillary refill; Absent tenderness or calf tenderness Back Exam Back exam: Present normal inspection and full ROM; Absent tenderness Neurological Exam Neurological exam: Present alert and oriented X3 Psychiatric Psychiatric exam: Present normal affect and normal mood Skin Skin exam: Present warm, dry, intact and normal color Lymphatic Lymphatic Findings: no adenopathy Medical Decision Making Medical Records Medical records reviewed: No I reviewed the patient's medical records. Tree Inquiry Pt receiving controlled substance: No Vital Signs: 05/19/24 18:14 Temperature 99.2 F Temperature Source Oral Pulse Rate [Left Brachial] 75 Respiratory Rate 20 Blood Pressure [Left Arm] 143/80 H Blood Pressure Mean [Left Arm] 101 02 Sat by Pulse Oximetry 99 Lab Data Lab results reviewed: Yes I reviewed the patient's lab results.
[2024-05-19 19:24] VITALS: BP 143/80; PULSE 75; RESP 20; TEMP 37.2
== END 2024-05-19 19:29 | disposition home or self-care (01) ==
PROVIDERS: Emergency Provider Nurse Practitioner Family; PCP Internal Medicine
DX: U07.1 COVID-19 (principal); J01.90 Acute sinusitis, unspecified; R51.9 Headache, unspecified
CPT/HCPCS: 87635; 99212; 99214; G0463

== ENCOUNTER 2024-07-29 15:32 | Outpatient (CLI) | payer MEDICARE, SELFPAY ==
--- NOTE | 2024-07-29 15:37 | XR_ITS ---
FINAL REPORT TECHNIQUE: Chest PA & Lateral CLINICAL HISTORY: Left posterior chest pain below shoulder COMPARISON: None FINDINGS: 2 views of the chest were performed. The heart size is normal. Sternotomy wires are present. There is no acute cardiopulmonary process. Scarring is noted at the left lung base. There are no pleural effusions. There is no pneumothorax. The bony thorax appears intact. IMPRESSION: No acute cardiopulmonary process. Reviewed, Interpreted and Dictated by Wilner Paul MD Transcribed by Joanna Beltran Authenticated and [facility]
== END 2024-07-29 23:59 | disposition home or self-care (01) ==
LOC: RAD 15:34
PROVIDERS: PCP Internal Medicine; Visit Provider Internal Medicine
DX: R07.9 Chest pain, unspecified (principal); M54.6 Pain in thoracic spine
CPT/HCPCS: 71046